=== PATIENT | female | born 1970 | race Two or more races ===

== ENCOUNTER → 2019-05-01 | Outpatient (CLI) | payer OTHER ==
--- NOTE | 2019-05-01 12:07 | RAD ---
EXAM: Right femur, 2 views; right knee, 2 views. HISTORY: Pain. COMPARISON: None. FINDINGS: Frontal and lateral views of the right femur and knee are obtained. There is no fracture, dislocation or subluxation. There is no lytic or sclerotic osseous lesion. There is no periosteal reaction. IMPRESSION: No acute osseous finding. Electronically signed by: Dianna Anne MD (05/01/2019 12:04 PM) [facility]
--- NOTE | 2019-05-01 12:07 | RAD ---
EXAM: Right femur, 2 views; right knee, 2 views. HISTORY: Pain. COMPARISON: None. FINDINGS: Frontal and lateral views of the right femur and knee are obtained. There is no fracture, dislocation or subluxation. There is no lytic or sclerotic osseous lesion. There is no periosteal reaction. IMPRESSION: No acute osseous finding. Electronically signed by: Dianna Anne MD (05/01/2019 12:04 PM) [facility]
== END | disposition home or self-care (01) ==
LOC: PMG 09:56
PROVIDERS: ATTEND Registered Nurse
DX: M25.561 Pain in right knee (principal)
CPT/HCPCS: 73552; 73560